=== PATIENT | male | born 1955 | race Caucasian/White ===

== ENCOUNTER → 2016-12-06 | Outpatient (CLI) | payer BC ==
[2016-12-06 07:30] LABS: Blood Urea Nitrogen 25 mg/dL (9-20); Non-African American GFR(MDRD) >60 (>60 ml/min/1.73 sqM)
--- NOTE | 2016-12-06 08:38 | CT ---
EXAMINATION TYPE: CT abdomen pelvis w con DATE OF EXAM: 12/06/2016 8:22 AM COMPARISON: Prior CT abdomen and pelvis January 05, 2008 HISTORY: Ventral wall hernia per patient and order CT DLP: 1386.60 mGycm Automated exposure control for dose reduction was used. TECHNIQUE: Helical acquisition of images was performed from the lung bases through the pelvis. CONTRAST: Performed with Oral Contrast and with IV Contrast, patient injected with 100 ml mL of Omnipaque 300. FINDINGS: LUNG BASES: No significant abnormality is appreciated. LIVER/GB: Liver is diffusely low dense consistent with fatty infiltration as confirmed on prior nonco ntrast CT. PANCREAS: No significant abnormality is seen. SPLEEN: No significant abnormality is seen. ADRENALS: No significant abnormality is seen. KIDNEYS: There are some simple appearing cysts scattered throughout both kidneys. There is symmetric cortical medullary uptake and excretion seen without evidence of hydronephrosis bilaterally. There is 1.1 cm heterogeneous hyperdense lesion laterally mid pole level right kidney seen best image 44 seri es 3 is too small to further characterize, solid mass or neoplasm at this level cannot be excluded. F ollow-up is advised. REPRODUCTIVE ORGANS: No significant abnormality is seen URINARY BLADDER: No significant abnormality is seen. PELVIC ADENOPATHY: None visualized. OSSEOUS STRUCTURES: There is a prominent spur from the superior pubic symphysis. There is moderate t o severe spurring and disc space narrowing the lower lumbar spine. Facet arthropathy and posterior di sc herniations are present terminating to spinal canal stenosis at L4-L5 level. BOWEL: No significant abnormality is seen. Other: There is small to moderate sized fat-containing left inguinal hernia. There are numerous coils from ventral wall hernia repair surgery. Linear density consistent with mesh material is present. No recurrent hernia is evident. There is mild calcified atherosclerotic change of aorta and branch vessels. IMPRESSION: 1. Surgical changes from ventral wall hernia repair surgery with successful repair noted. 2. Nonspecific 1.2 cm exophytic hyperdense lesion right kidney which solid mass or neoplasm cannot be excluded. Consider renal protocol contrast-enhanced MRI evaluation or short-term CT/MRI follow-up in 3 months time due to small size.
== END | disposition home or self-care (01) ==
LOC: RADCTMAIN 06:39
PROVIDERS: ATTEND Surgery
DX: N28.9 Disorder of kidney and ureter, unspecified (principal); Z98.890 Other specified postprocedural states
CPT/HCPCS: 82565; 84520; 74177; 36415; Q9967

== ENCOUNTER 2016-12-22 07:52 | Day surgery (SDC) | payer BC ==
--- NOTE | 2016-12-21 17:08 | HP ---
DATE OF ADMISSION: 12/22/2016 Efraín Campbell is a 61-year-old patient seen with progressive right shoulder pain. After having treatment options discussed, he elected to proceed with right shoulder arthroscopy. Consent was obtained. PAST MEDICAL HISTORY: 1. Hypertension. 2. Zwe-kcspeip-bwwiwzvki diabetes. 3. Hypothyroidism. 4. Hyperlipidemia. PAST SURGICAL HISTORY: Knee arthroscopy. DAILY MEDICATIONS: 1. Aspirin. 2. Diovan. 3. Metformin. 4. Metoprolol. 5. Simvastatin. ALLERGIES: NONE. SOCIAL HISTORY: Patient denies current tobacco use. PHYSICAL EVALUATION OF THE RIGHT SHOULDER: Flexion is 160 degrees. Abduction is 140 degrees. External rotation is 20 degrees with weakness. Tenderness along the anterolateral acromion, rotator cuff insertion site. Mild subacromial crepitation on range of motion. Impingement sign is positive at 90 degrees. Drop arm sign is positive. Distal neurovascular exam is intact. Right shoulder radiographs revealed a type II anterior acromion, acromioclavicular joint osteoarthritis and cystic changes of the greater tuberosity. An MRI of the right shoulder revealed a rotator cuff tear, partial biceps tendon tear and acromioclavicular joint osteoarthritis. IMPRESSION: Right shoulder impingement with rotator cuff tear and acromioclavicular joint osteoarthritis. PLAN: Right shoulder arthroscopy with subacromial decompression, probable arthroscopic rotator cuff repair, possible Tish procedure and debridement.
[~2016-12-22 07:52] MED LIST: DEXAMETHASONE SOD PHOSPHATE 10 MG/ML 1 ML VIAL IV ONE; HYDROmorphone 1 MG/ML 1 ML SYRINGE IVP PRN; LACTATED RINGERS 1,000 ML IV SCH; MIDAZOLAM 2 MG/2 ML VIAL IV PRN; ONDANSETRON 4 MG/2 ML VIAL IVP ONE; ceFAZolin 2 GM in SODIUM CHLORIDE 0.9% 100 ML IVPB ONE
[2016-12-22] MEDS ORDERED: LIDOCAINE 1% 20 ML VIAL (10MG/ML) FOR IV START INTRADERMA ONE (08:26)
[2016-12-22] MEDS ORDERED: fentaNYL (PF) 50 MCG/ML 2 ML AMP IV ONE (08:35)
[2016-12-22 08:36] LABS: Glucose,Whole Blood 135 mg/dL (75-99)
--- NOTE | 2016-12-22 08:54 | P.ONQ ---
Anesthesiology Proc Note - PNB - Peripheral Nerve Block Performed Right Interscalene Single Time Out Performed: Yes Indication: Acute Post-Operative Pain, Analgesia Specifically requested for management of pain by DrRossy: Silver Coto Sedation Type: Sedate with meaningful contact maintained Preparation: Sterile Prep Position: Supine Catheter: None Needle Types: Other (see comment) (stimuplex) Needle Size: 50mm (2") Needle Gauge: Other (see comment) (22) Technique: Ultrasound Injectate: Other (see comment) (0.5% ropivicaine 15cc + 2% lidocaine 15cc Mixture) Adjunct: Epinephrine (see comment for dilution ratio) (150 mcg) Narrative: Nerve Stim 2 Hz @ 0.3 mA Blood Aspirated: No Pain Paresthesia on Injection Noted: No Resistance on Injection: Normal Events: Uneventful and Well Tolerated
[2016-12-22] MEDS ORDERED: NEOSTIGMINE 1 MG/ML 10 ML VIAL ONE (09:46)
[2016-12-22] MEDS ORDERED: PROPOFOL 10 MG/ML 20 ML VIAL IV ONE (09:46)
[2016-12-22] MEDS ORDERED: ePHEDrine 50 MG/ML 1 ML AMP ONE (09:46)
[2016-12-22] MEDS ORDERED: ROPIVACAINE 5 MG/ML 30 ML VIAL ONE (09:46)
[2016-12-22] MEDS ORDERED: LIDOCAINE 1% INJ 10MG/ML (20 ML MDV) ONE (09:46)
[2016-12-22] MEDS ORDERED: MIDAZOLAM 2 MG/2 ML VIAL ONE (09:46)
[2016-12-22] MEDS ORDERED: LIDOCAINE 2%-EPI 1:100,000 20 ML VIAL ONE (09:46)
[2016-12-22] MEDS ORDERED: fentaNYL (PF) 50 MCG/ML 2 ML AMP ONE (09:46)
[2016-12-22] MEDS ORDERED: ROCURONIUM BROMIDE 10 MG/ML 10 ML VIAL IV ONE (09:46)
[2016-12-22] MEDS ORDERED: GLYCOPYRROLATE 0.2 MG/ML 2 ML VIAL ONE (09:46)
[2016-12-22] MEDS ORDERED: SUCCINYLCHOLINE CHLORIDE 100 MG/5 ML SYR IV ONE (09:46)
[2016-12-22] MEDS ORDERED: LACTATED RINGERS 1,000 ML IV ONE (10:27)
--- NOTE | 2016-12-22 12:04 | P.OP ---
Date of Procedure: 12/22/16 Preoperative Diagnosis: Right shoulder impingement Postoperative Diagnosis: 1. Right shoulder large rotator cuff tear 2. Right shoulder impingement 3. Right shoulder acromioclavicular joint osteoarthritis 4. Right shoulder superior labral tear Procedure(s) Performed: 1. Right shoulder arthroscopic rotator cuff repair 2. Right shoulder arthroscopic subacromial decompression 3. Right shoulder arthroscopic Tish procedure 4. Right shoulder arthroscopic debridement labral tear Implants: 6-valeris peek anchors Anesthesia: GETA, regional (Interscalene block) Surgeon: Silver Coto Estimated Blood Loss (ml): 20 Pathology: none sent Condition: stable Disposition: PACU Indications for Procedure: 61-year-old patient seen with progressive right shoulder pain. After having treatment options discussed, he elected to proceed with right shoulder arthroscopy. Operative Findings: see description of procedure Description of Procedure: Patient underwent a shoulder block by department of anesthesia. The patient was then taken to the operative suite. The patient underwent a general anesthetic by the department of anesthesia. The patient was placed into a lateral position and secured. There was appropriate padding of the bony prominence. Right shoulder was then prepped and draped in normal sterile orthopedic fashion. We placed the extremity in 10 pounds of longitudinal traction. A posterior incision was now made for a posterior working portal site. The trocar and cannula were inserted into the glenohumeral joint. Arthroscopy was initiated. Spinal needle was now inserted anteriorly, to ascertain the anterior working portal site. An incision was now made in that area, a trocar was inserted followed by a probe. There was superficial tearing of the superior labrum. Long head biceps was absent. Grade 1/2 chondromalacia glenoid. Humeral head unremarkable. No loose bodies. I debrided the superior labral tear down to stable tissue. The residual labrum was probed and found to be stable. Instruments were now removed from glenohumeral joint. Utilizing the posterior working portal site, the trocar and cannula were inserted into the subacromial space. Arthroscopy initiated. I made an incision 2 fingerbreadths lateral to the acromion. I introduced my trocar followed by my ArthroCare ablator. I now began ablating thick subacromial bursal tissue, which exposed the undersurface of the anterior acromion. This was diminished subacromial space. There was a very prominent anterior acromion. A motorized bur was introduced and a subacromial decompression was performed. I also excised some osteophytes off the inferior aspect of the distal clavicle. The AC joint was visualized and noted to be fairly arthritic. Our motorized bur was introduced in the anterior portal site and a Tish procedure was performed without difficulty, decompressing the AC joint nicely. I turned my attention to the rotator cuff. There was a large rotator cuff tear present with some retraction. It measured approximately 3.5-4 cm. I was able to pull it over the footprint. I abraded the footprint with a motorized bur. I made an assessory portal site off the lateral acromion. I introduced 3 medial row anchors with 2 sutures each. I now passed all 12 limbs of suture through good bites of rotator cuff tendon. I now crisscrossed all the sutures and introduced 3 lateral row anchors compressing the tendon along the footprint very nicely. Residual suture limbs were clipped. The repair was stable. I injected 1 mL of Allogen into the intra-articular area. Instruments now removed from the portal sites. All portal sites were approximated with nylon suture. Sterile dressings were applied followed by a shoulder immobilizer. Justice RICO assisted with the procedure. The patient was awakened, transferred to a bed, and taken to recovery in stable condition.
[2016-12-22 12:12] VITALS: TEMP 97.3
[2016-12-22 12:27] LABS: Glucose,Whole Blood 186 mg/dL (75-99)
[2016-12-22 13:49] VITALS: RESP 18
[2016-12-22 14:28] VITALS: BP 117/62
[2016-12-22 14:33] VITALS: PULSE 81
== END 2016-12-22 14:38 | disposition home or self-care (01) ==
LOC: OR 07:52
PROVIDERS: ATTEND Orthopaedic Surgery
DX: M75.101 Unspecified rotator cuff tear or rupture of right shoulder, not specified as traumatic (principal); M75.41 Impingement syndrome of right shoulder; S43.491A Other sprain of right shoulder joint, initial encounter; M19.011 Primary osteoarthritis, right shoulder; I10 Essential (primary) hypertension; E11.9 Type 2 diabetes mellitus without complications; E78.5 Hyperlipidemia, unspecified; E03.9 Hypothyroidism, unspecified; Z79.82 Long term (current) use of aspirin; Z79.899 Other long term (current) drug therapy; Z79.84 Long term (current) use of oral hypoglycemic drugs; X58.XXXA Exposure to other specified factors, initial encounter
CPT/HCPCS: 64415; 29827; 29826; C1713 ×2; C1765; J2250; J1100; J2710; J0690; J2405; J2001; J3010; J2795; J0330; J2704

== ENCOUNTER → 2017-03-02 | Outpatient (CLI) | payer BC ==
[2017-03-02 10:55] LABS: Blood Urea Nitrogen 24 mg/dL (9-20); Non-African American GFR(MDRD) >60 (>60 ml/min/1.73 sqM)
== END ==
LOC: LABWHC1 09:37
PROVIDERS: ATTEND Urology
DX: N28.1 Cyst of kidney, acquired (principal)
CPT/HCPCS: 36415; 82565; 84520

== ENCOUNTER → 2017-03-04 | Outpatient (CLI) | payer BC ==
--- NOTE | 2017-03-04 08:38 | MR ---
EXAMINATION TYPE: MR abdomen wo/w con DATE OF EXAM: 03/04/2017 7:35 AM COMPARISON: CT abdomen and pelvis December 06, 2016. HISTORY: Renal cyst per order CONTRAST: Standard multiplanar, multisequence MRI departmental protocol utilizing 20 mL intravenous MultiHance gadolinium contrast. FINDINGS: KIDNEYS: There is prominent but simple appearing parapelvic cyst centrally in the right kidney redemo nstrated measuring approximately 5.0 x 3.5 x 4.0 cm on coronal image 26 and axial image 14 of series 501 and 201. There is additional simple appearing cyst measuring 2.8 x 2.4 cm posteriorly upper to mi d pole level left kidney on image 20 series 501. There are tiny simple appearing parapelvic cyst cent rally in the left kidney most pronounced lower pole aspect. There is slightly more prominent parapelv ic cysts posteriorly upper pole level right kidney. There is subcentimeter T2 hyperintense lesion ant eriorly mid pole level right kidney on axial image 17 consistent with simple cyst. Corresponding to lesion of concern on CT there is partially exophytic 1.3 cm round lesion laterally m id pole level right kidney that is isointense to kidney on T1-weighted images and hypointense on T2-w eighted images. Post contrast imaging shows some vague heterogeneous enhancement centrally as well as of the peripheral rim. Because of enhancement imaging characteristics are not consistent with protei naceous or hemorrhagic cyst but favor solid lesion. OTHER: Lung bases are clear. The liver, spleen, gallbladder, pancreas, and both adrenal glands are no rmal in size and appear grossly unremarkable. There is no suspicious abdominal fluid collection. Ther e is no suspicious bowel dilatation. In the anterior abdominal wall there is artifact from coils rela shauna to prior ventral wall hernia repair surgery. Some hemangiomas are seen at left T12 and L1 vertebr al body level. IMPRESSION: Partially exophytic 1.3 cm lesion of concern on recent CT lateral aspect mid pole level right kidney shows heterogeneous internal and rim enhancement suggesting solid etiology over proteinaceous or hemo rrhagic cystic lesion. And thus renal cell carcinoma cannot be excluded. Treatment options would incl ude partial nephrectomy, RFA, or cryoablation.
== END | disposition home or self-care (01) ==
LOC: RADMRIMAIN 06:44
PROVIDERS: ATTEND Urology
DX: R93.421 Abnormal radiologic findings on diagnostic imaging of right kidney (principal)
CPT/HCPCS: 74183; A9577

== ENCOUNTER → 2018-02-10 | Outpatient (CLI) | payer BC ==
--- NOTE | 2018-02-10 10:23 | US ---
EXAMINATION TYPE: US kidneys/renal and bladder DATE OF EXAM: 02/10/2018 COMPARISON: CT, MRI CLINICAL HISTORY: C64.1 MALIGNANT NEOPLASM OF RIGHT KIDNEY EXCEPT PELVIS. Pt states h/o renal CA with removal of lesion right kidney in April 2017 EXAM MEASUREMENTS: Right Kidney: 12.9 x 6.3 x 5.8 cm Left Kidney: 12.5 x 6.7 x 6.2 cm Right Kidney: Cyst medial= 3.8 x 2.9 x 2.9 cm/ lobulated contour laterally where pt had previous surg delroy Left Kidney: Cyst lateral= 3.1 x 2.7 x 3.0 cm Bladder: wnl Bilateral Jets seen: Yes There is no evidence for hydronephrosis at this point in time. No nephrolithiasis is seen. No solid masses are identified. The urinary bladder is anechoic. Bilateral ureteral jets are seen. IMPRESSION: Cystic changes of the kidneys without evidence for solid mass at this time.
== END | disposition home or self-care (01) ==
LOC: RADUSWWP 09:43
PROVIDERS: ATTEND Urology
DX: N28.1 Cyst of kidney, acquired (principal); C64.1 Malignant neoplasm of right kidney, except renal pelvis
CPT/HCPCS: 76770

== ENCOUNTER → 2018-08-17 | Outpatient (CLI) | payer BC ==
--- NOTE | 2018-08-17 09:18 | XR ---
EXAMINATION TYPE: XR chest 2V DATE OF EXAM: 08/17/2018 COMPARISON: NONE HISTORY: Kidney cancer. TECHNIQUE: Frontal and lateral views of the chest are obtained. FINDINGS: There is no focal air space opacity, pleural effusion, or pneumothorax seen. The cardiac silhouette size is within normal limits. The osseous structures are intact. IMPRESSION: No acute cardiopulmonary process.
[2018-08-17 09:38] LABS: HCT 45.2 % (39.0-53.0); HGB 15.4 gm/dL (13.0-17.5); MCH 28.7 pg (25.0-35.0); MCV 84.6 fL (80.0-100.0); Mean Platelet Volume 6.5; Platelet Count 248 k/uL (150-450); RBC 5.34 m/uL (4.30-5.90); RDW 13.4 % (11.5-15.5); WBC 7.5 k/uL (3.8-10.6)
[2018-08-17 09:57] LABS: ALT 30 U/L (21-72); AST 20 U/L (17-59); Albumin 4.1 g/dL (3.5-5.0); Alkaline Phosphatase 78 U/L (38-126); Anion Gap 8 mmol/L; Blood Urea Nitrogen 25 mg/dL (9-20); Calcium 9.4 mg/dL (8.4-10.2); Carbon Dioxide 28 mmol/L (22-30); Chloride 104 mmol/L (98-107); Glucose 146 mg/dL (74-99); Potassium 4.1 mmol/L (3.5-5.1); Sodium 140 mmol/L (137-145); Total Bilirubin 0.9 mg/dL (0.2-1.3)
== END ==
LOC: RADXRMAIN 08:48
PROVIDERS: ATTEND Urology
DX: C64.9 Malignant neoplasm of unspecified kidney, except renal pelvis (principal)
CPT/HCPCS: 36415; 71046; 80053; 85027

== ENCOUNTER → 2020-12-17 | Outpatient (CLI) | payer MEDICARE ==
--- NOTE | 2020-12-17 10:24 | ECHOF ---
Referral Reason:R07.9 chest pain MEASUREMENTS -------- HEIGHT: 170.2 cm WEIGHT: 103.4 kg BP: IVSd: 1.1 cm (0.6 - 1.1) LVIDd: 2.3 cm (3.9 - 5.3) LVPWd: 1.4 cm (0.6 - 1.1) IVSs: 1.6 cm LVIDs: 1.3 cm LVPWs: 1.5 cm LAESV Index (A-L): 15.49 ml/m Ao Diam: 2.6 cm (2.0 - 3.7) AV Cusp: 1.5 cm (1.5 - 2.6) LA Diam: 3.3 cm (2.7 - 3.8) MV EXCURSION: 16.312 mm (> 18.000) MV EF SLOPE: 109 mm/s (70 - 150) EPSS: 1.2 cm MV E Toby: 0.63 m/s MV DecT: 146 ms MV A Toby: 0.83 m/s MV E/A Ratio: 0.76 RAP: 5.00 mmHg RVSP: 24.33 mmHg FINDINGS -------- Sinus rhythm. This was a technically adequate study. The left ventricular size is normal. There is mild concentric left ventricular hypertrophy. Overa ll left ventricular systolic function is normal with, an EF between 55 - 60 %. The diastolic fillin g pattern is normal for the age of the patient 8.95. The right ventricle is normal in size. Normal LA size by volume 22+/-6 ml/m2. The right atrial size is normal. Interatrial and interventricular septum intact. The aortic valve is trileaflet, and appears structurally normal. No aortic stenosis or regurgitation. The mitral valve is normal. There is trace mitral regurgitation. The tricuspid valve appears structurally normal. Trace tricuspid regurgitation present. Right brooks tricular systolic pressure is normal at < 35 mmHg. There is no pulmonic regurgitation present. The aortic root size is normal. Normal inferior vena cava with normal inspiratory collapse consistent with estimated right atrial pre ssure of 5 mmHg. There is no pericardial effusion. CONCLUSIONS -------- 1. There is mild concentric left ventricular hypertrophy. 2. Overall left ventricular systolic function is normal with, an EF between 55 - 60 %. 3. Normal LA size by volume 22+/-6 ml/m2. 4. The aortic valve is trileaflet, and appears structurally normal. No aortic stenosis or regurgitati on. 5. There is trace mitral regurgitation. 6. Trace tricuspid regurgitation present. 7. There is no pericardial effusion. FISCAL TECHNICIAN: Briseyda Poole RDCS
--- NOTE | 2020-12-17 12:15 | EST ---
EXERCISE STRESS AGE: 65 SEX: Male HT: 67" WT: 230 pounds PROTOCOL: Liam STAGE: III DURATION OF EXERCISE: 9 minutes 1 second HEART RATE REST: 82 BLOOD PRESSURE REST: 157/83 MAXIMUM HEART RATE ACHIEVED: 139 MAXIMUM BLOOD PRESSURE: 241/84 85% MPHR: 132 100% MPHR: 155 METS: 10.5 INDICATIONS: Chest pain. CLINICAL INFORMATION: Baseline rhythm is a sinus mechanism, rate of 82, normal axis and intervals, normal electrocardiogram. Baseline blood pressure 157/83 mmHg. Patient exercised on Liam protocol for 9 minutes 1 second occasion. Peak rate of 139 beats per minute which is equal to 89% maximum predicted heart rate. Peak blood pressure 241/84 mmHg. Test was terminated secondary to fatigue. There was no chest pain. Electrocardiograph monitoring revealed occasional PVCs with rare couplets. There was no evidence of diagnostic ischemic ST deviation. CONCLUSION: 1. Good exercise tolerance with no chest discomfort. 2. Occasional PVCs with rare couplets. 3. Normal electrocardiographic response to exercise with no evidence of exercise induced ischemia. MMODL / IJN: [id number] /
== END | disposition home or self-care (01) ==
LOC: RADNMMAIN 08:46
PROVIDERS: ATTEND Family Medicine
DX: R07.9 Chest pain, unspecified (principal)
CPT/HCPCS: 93017; 93306

== ENCOUNTER → 2021-11-13 | Outpatient (CLI) | payer MEDICARE ==
--- NOTE | 2021-11-13 09:09 | XR ---
EXAMINATION TYPE: XR chest 2V DATE OF EXAM: 11/13/2021 COMPARISON: Chest x-ray August 17, 2018 HISTORY: Shortness of breath. TECHNIQUE: Frontal and lateral views of the chest are obtained. FINDINGS: There is no new suspicious focal air space opacity, pleural effusion, or pneumothorax seen . The cardiac silhouette size remains within normal limits. The osseous structures are intact. IMPRESSION: No acute process. No significant change from prior.
== END | disposition home or self-care (01) ==
LOC: RADXRMAIN 08:45
PROVIDERS: ATTEND Family Medicine
DX: R06.02 Shortness of breath (principal)
CPT/HCPCS: 71046

== ENCOUNTER → 2021-12-11 | Outpatient (CLI) | payer MEDICARE ==
--- NOTE | 2021-12-11 12:49 | CT ---
EXAMINATION TYPE: CT abdomen wo con DATE OF EXAM: 12/11/2021 COMPARISON: 12/06/2016 HISTORY: Kidney cancer CT DLP: 872 mGycm Automated exposure control for dose reduction was used. TECHNIQUE: Helical acquisition of images was performed from the lung bases through the top of iliac crest to include entire abdomen. CONTRAST: Performed without Oral Contrast and without IV contrast. FINDINGS: LUNG BASES: No significant abnormality is appreciated. LIVER/GB: No significant abnormality is appreciated. PANCREAS: No significant abnormality is seen. SPLEEN: No significant abnormality is seen. ADRENALS: No significant abnormality is seen. KIDNEYS: Right parapelvic renal cyst and left exophytic renal cyst are stable in size and appearance relative to prior exam. Deformity along the lateral margin the right kidney corresponds to postoperat lakeisha change. No hydronephrosis or nephrolithiasis. BOWEL: No significant abnormality is seen. LYMPH NODES: No significant abnormality is appreciated. OSSEOUS STRUCTURES: Hypertrophic degenerative change of the spine. FREE AIR: Aorta of normal caliber. OTHER: Atherosclerotic change aorta. Small hiatal hernia. No urinary postsurgical change involving th e inferior glenohumeral ligament. No IMPRESSION: 1. POSTSURGICAL CHANGE INVOLVING THE RIGHT KIDNEY WITH BILATERAL SIMPLE APPEARING RENAL CYST. 2. POSTSURGICAL CHANGE INVOLVING THE ANTERIOR ABDOMINAL
== END | disposition home or self-care (01) ==
LOC: RADCTMAIN 12:09
PROVIDERS: ATTEND Family Medicine
DX: N28.1 Cyst of kidney, acquired (principal); Z85.528 Personal history of other malignant neoplasm of kidney
CPT/HCPCS: 74150

== ENCOUNTER → 2024-03-02 | Outpatient (CLI) | payer MEDICARE ==
[2024-03-02 15:40] LABS: Anion Gap 11.1 mmol/L (4.00-12.00); Carbon Dioxide 22.9 mmol/L (21.6-31.8); Potassium 4.8 mmol/L (3.5-5.5)
[2024-03-02 15:50] LABS: Basophils # (A) 0.04 X 10*3/uL (0.00-0.10); Basophils % (A) 0.3 %; Eosinophils # (A) 0.19 X 10*3/uL (0.04-0.35); Eosinophils % (A) 1.6 %; HCT 47.5 % (39.6-50.0); HGB 15.9 g/dL (13.0-17.0); Lymphocytes # (A) 1.74 X 10*3/uL (0.90-5.00); Lymphocytes % (A) 15.1 %; MCH 29.4 pg (27.0-32.0); MCHC 33.5 g/dL (32.0-37.0); MCV 87.8 FL (80.0-97.0); Mean Platelet Volume 9.8 FL (9.5-12.2); Monocytes # (A) 0.86 X 10*3/uL (0.20-1.00); Monocytes % (A) 7.4 %; NRBC Per 100 WBC 0 X 10*3/uL (0.00-0.01); Neutrophils % (A) 75.3 %; Platelet Count 210 X 10*3/uL (140-440); RBC 5.41 X 10*6/uL (4.40-5.60); RDW 13.2 % (11.5-14.5); WBC 11.56 X 10*3/uL (4.50-10.00)
== END | disposition home or self-care (01) ==
LOC: LABPAT 09:30
PROVIDERS: ATTEND Orthopaedic Surgery Hand Surgery
DX: Z01.812 Encounter for preprocedural laboratory examination (principal); G56.01 Carpal tunnel syndrome, right upper limb
CPT/HCPCS: 80051; 85025

== ENCOUNTER → 2024-03-06 | Outpatient (CLI) | payer MEDICARE ==
[2024-03-06 09:09] LABS: Basophils # (A) 0.1 k/uL (0-0.2); Basophils % (A) 1 %; Eosinophils # (A) 0.2 k/uL (0-0.7); Eosinophils % (A) 2 %; HGB 15.6 gm/dL (13.0-17.5); Lymphocytes # (A) 1.4 k/uL (1.0-4.8); Lymphocytes % (A) 15 %; MCH 29.3 pg (25.0-35.0); MCHC 33.2 g/dL (31.0-37.0); MCV 88.1 fL (80.0-100.0); Mean Platelet Volume 7.1; Monocytes # (A) 0.7 k/uL (0-1.0); Monocytes % (A) 7 %; Neutrophils # (A) 6.7 k/uL (1.3-7.7); Neutrophils % (A) 72 %; Platelet Count 203 k/uL (150-450); RBC 5.34 m/uL (4.30-5.90); RDW 13.5 % (11.5-15.5); WBC 9.3 k/uL (3.8-10.6)
== END | disposition home or self-care (01) ==
LOC: LABWHC1 08:08
PROVIDERS: ATTEND Family Medicine
DX: D72.829 Elevated white blood cell count, unspecified (principal)
CPT/HCPCS: 85025

== ENCOUNTER 2024-03-07 10:58 | Day surgery (SDC) | payer MEDICARE ==
--- NOTE | 2024-03-05 13:10 | P.HPOR ---
History of Present Illness H&P Date: 03/05/24 Subjective: This is a 68 year old male that presents today for initial evaluation regarding a 5 year history of progressively worsening right hand paresthesias in the thumb, index, middle and ring fingers. The patient has tried bracing with no relief. He now has constant numbness in the right finger tips. He is retired and works on a farm now. He states his numbness is mainly worse at night and often wakes him from sleep several times a night. Physical Examination: RUE: AIN/PIN/Radial/Ulnar/Median motor intact. Radial/Ulnar/Median SILT. 2+/4 Radial/Ulnar pulses palpated. 5/5 APB, 5/5 FDI. Negative Finkelsteins, negative CMC grind, positive Durkan's compression. LUE: AIN/PIN/Radial/Ulnar/Median motor intact. Radial/Ulnar/Median SILT. 2+/4 Radial/Ulnar pulses palpated. 5/5 APB, 5/5 FDI. Negative Finkelsteins, negative CMC grind, positive Durkan's compression. Impression: 1.) Right carpal tunnel syndrome 2.) Left carpal tunnel syndrome Plan: Diagnosis and treatment options were discussed with the patient. The patient has failed conservative treatment and would like to pursue a right endoscopic vs open carpal tunnel release. Risks and benefits of surgery including bleeding, infection, damage to surrounding tissue, need for further surgery, possible need to convert to open procedure, residual numbness were discussed and the patient wished to go forward with surgery. CC: Dr. Andreina Alberts DO Orthopedic Hand/Upper Extremity Surgeon Past Medical History Past Medical History: Cancer, Diabetes Mellitus, Hyperlipidemia, Hypertension, Thyroid Disorder Additional Past Medical History / Comment(s): Hypothyroidism,,kidney cancer History of Any Multi-Drug Resistant Organisms: None Reported Past Surgical History: Orthopedic Surgery Additional Past Surgical History / Comment(s): Right shoulder rotator cuff sugery 12/22/16, partial nephrectomy on rt, lft knee arthroscopy x2, Past Anesthesia/Blood Transfusion Reactions: No Reported Reaction Smoking Status: Former smoker - Past Family History Brother(s) Family Medical History: Cancer Additional Family Medical History / Comment(s): non hodgkins Mother Family Medical History: Cancer Additional Family Medical History / Comment(s): leukemia Medications and Allergies Home Medications Medication Instructions Recorded Confirmed Type Levothyroxine Sodium [Synthroid] 100 mcg PO DAILY 03/23/16 03/02/24 History Metoprolol Tartrate [Lopressor] 50 mg PO HS 03/23/16 03/02/24 History Simvastatin [Zocor] 40 mg PO HS 03/23/16 03/02/24 History Valsartan/Hydrochlorothiazide 1 each PO DAILY 03/23/16 03/02/24 History [Valsartan-Hctz 320-25 mg Tab] Aspirin 81 mg PO DAILY 12/20/16 03/02/24 History Cyclobenzaprine HCl 5 mg PO MO 03/02/24 03/02/24 History Semaglutide [Ozempic] 2 mg SQ TID PRN 03/02/24 03/02/24 History Allergies Allergy/AdvReac Type Severity Reaction Status Date / Time No Known Allergies Allergy Verified 03/02/24 14:01 Physical Examination Osteopathic Statement: *. No significant issues noted on an osteopathic structural exam other than those noted in the History and Physical/Consult.
[2024-03-06 09:09] LABS: Basophils # (A) 0.1 k/uL (0-0.2); Basophils % (A) 1 %; Eosinophils # (A) 0.2 k/uL (0-0.7); Eosinophils % (A) 2 %; HGB 15.6 gm/dL (13.0-17.5); Lymphocytes # (A) 1.4 k/uL (1.0-4.8); Lymphocytes % (A) 15 %; MCH 29.3 pg (25.0-35.0); MCHC 33.2 g/dL (31.0-37.0); MCV 88.1 fL (80.0-100.0); Mean Platelet Volume 7.1; Monocytes # (A) 0.7 k/uL (0-1.0); Monocytes % (A) 7 %; Neutrophils # (A) 6.7 k/uL (1.3-7.7); Neutrophils % (A) 72 %; Platelet Count 203 k/uL (150-450); RBC 5.34 m/uL (4.30-5.90); RDW 13.5 % (11.5-15.5); WBC 9.3 k/uL (3.8-10.6)
[~2024-03-07 10:58] MED LIST changes: -DEXAMETHASONE SOD PHOSPHATE 10 MG/ML 1 ML VIAL IV ONE; +DEXAMETHASONE SOD PHOSPHATE 4 MG/ML 1 ML VIAL IV ONE; +HYDROmorphone 0.5 MG/0.5 ML SYRINGE IVP PRN; -HYDROmorphone 1 MG/ML 1 ML SYRINGE IVP PRN; -MIDAZOLAM 2 MG/2 ML VIAL IV PRN; +Pre Op ABX Message 1 EACH MISC MISCELLANE ONE; -ceFAZolin 2 GM in SODIUM CHLORIDE 0.9% 100 ML IVPB ONE
[2024-03-07] MEDS: LACTATED RINGERS 1,000 ML IV SCH (11:22)
[2024-03-07 11:44] LABS: Glucose,Whole Blood 104 mg/dL (70-110)
[2024-03-07] MEDS ORDERED: MIDAZOLAM 2 MG/2 ML VIAL ONE (11:52)
[2024-03-07] MEDS ORDERED: PROPOFOL 10 MG/ML 20 ML VIAL IV ONE (11:52)
[2024-03-07] MEDS ORDERED: fentaNYL (PF) 50 MCG/ML 2 ML AMP ONE (11:52)
[2024-03-07] MEDS: DEXAMETHASONE SOD PHOSPHATE 4 MG/ML 1 ML VIAL IV ONE (11:54)
[2024-03-07] MEDS: ONDANSETRON 4 MG/2 ML VIAL IVP ONE (11:55)
[2024-03-07] MEDS: LIDOCAINE 2% INJ 20 MG/ML SQ ONE (12:02)
[2024-03-07] MEDS: BUPIVACAINE (PF) 0.5% 30 ML VIAL SQ ONE (12:02)
--- NOTE | 2024-03-07 12:18 | P.OP ---
Date of Procedure: 03/07/24 Preoperative Diagnosis: Right carpal tunnel syndrome Postoperative Diagnosis: Right carpal tunnel syndrome Procedure(s) Performed: Right endoscopic carpal tunnel release Anesthesia: MAC Surgeon: Danilo Alberts Estimated Blood Loss (ml): 0 Pathology: none sent Condition: stable Disposition: PACU Description of Procedure: This is a 68 year old male who presents today for a right endoscopic carpal tunnel release after having failed conservative treatment in the past. Risks and benefits of surgery were discussed with the patient including bleeding, damage to surrounding tissue, infection, need to convert to open procedure, need for further surgery as well as risks of anesthesia including pulmonary embolism and even and the patient wished to proceed with surgical intervention. The patients was seen in the pre-operative area by myself. Consent and H&P were completed and updated. The correct extremity was marked in the pre-operative area by myself and all other questions were answered. Operative Narrative: The patient was brought to the operating room by the department of anesthesia. They remained on the portable stretcher and a rolling hand table was brought to the side of the operative extremity. Pre-operative time out was performed indicating the correct patient, procedure and laterality. All in the room agreed. The patient was then drifted off to sleep by the department of anesthesia. MAC anesthesia was utilized and a 50:50 mixture of 1% Lidocaine and 0.5% bupivacaine was injected into the subcutaneous tissues of the palmar skin, 8ccs total. A nonsterile tourniquet was then applied to the operative extremity and the right upper extremity was then prepped and draped in normal sterile fashion. The operative extremity was the exsanguinated with an esmarch bandage and the tourniquet was inflated to 250mmHg. 15 blade scalpel was utilized to make a transverse incision on the palmar skin just ulnar to the palmaris longus tendon at the level of the distal wrist crease. Ragnell retractor was then placed radially and blunt dissection was performed to reveal the distal forearm fascia. This was lifted with fine Grover pick ups and Littler tenotomy scissors were then used to open the forearm fascia transversely and a double skin hook was then placed. Hamate finder was placed into the carpal tunnel and then sequential sized dilators were inserted followed by the synovial elevator to separate the flexor tenosynovium from the undersurface of the transverse carpal ligament and a washboard texture was felt. The MicroAire endoscopic carpal tunnel release system gun was the then inserted into the carpal tunnel hugging the deep portion of the transverse carpal ligament in line with the base of the ring finger. Transverse fibers of the ligament were directly visualized. Pressure was applied on the palm to reveal the distal extent of the transverse carpal ligament. The blade was then deployed and the distal half of the transverse carpal ligament was released. The scope was then brought distal again and remaining transverse fibers were incised with the blade. The proximal half of the transverse carpal ligament was then divided and again the scope was advanced distal and remaining transverse fibers were incised with the blade. The radial and ulnar leaflets were directly visualized and mobile consistent with complete release. Tenotomy scissors were then utilized to release the remaining distal forearm fascia under direct visualization taking care to preserve the palmar cutaneous branch of the median nerve. Skin closure was performed with interrupted 4-0 Monocryl suture followed by steri strips. Sterile dressing was applied consisting 4x4s, Webril, and an mendoza bandage. Tourniquet was let down and the hand immediately was well perfused. The patient was then woken by the department of anesthesia and transferred to PACU in stable condition. Joe RICO was present for the case in its entirety and assisted in major portions of the case and protection of vital neurovascular structures. Danilo Alberts D.O. Orthopedic Hand/Upper Extremity Surgeon
[2024-03-07 12:22] VITALS: RESP 16; TEMP 92.1
[2024-03-07 13:07] VITALS: BP 134/79; PULSE 67
== END 2024-03-07 13:03 | disposition home or self-care (01) ==
LOC: OR 10:58
PROVIDERS: ATTEND Orthopaedic Surgery Hand Surgery
DX: G56.01 Carpal tunnel syndrome, right upper limb (principal); I10 Essential (primary) hypertension; E78.5 Hyperlipidemia, unspecified; E11.9 Type 2 diabetes mellitus without complications; E03.9 Hypothyroidism, unspecified; Z85.528 Personal history of other malignant neoplasm of kidney; Z87.891 Personal history of nicotine dependence; Z79.890 Hormone replacement therapy; Z79.899 Other long term (current) drug therapy; Z79.82 Long term (current) use of aspirin; Z98.890 Other specified postprocedural states
CPT/HCPCS: 85025; 29848; J2001; J2250; J1100; J2405; J3010; J2704; J0665